=== PATIENT | female | born 1930 | race African-American/Black ===

== ENCOUNTER 2021-01-04 12:42 | Inpatient (IN) | payer MEDICARE ==
[2021-01-04] MEDS ORDERED: Calcium Carbonate 500 MG ChewTAB PO PRN (14:37)
[2021-01-04] MEDS ORDERED: Sodium Chloride 0.65% Nasal 44 ML BOT EA NARE PRN (14:37)
[2021-01-04] MEDS ORDERED: Dextrose 5% in Water 1,000 ML IV PRN (14:37)
[2021-01-04] MEDS ORDERED: Dextrose 50% Abboject 50 ML SYRINGE SLOW IVP PRN (14:37)
[2021-01-04] MEDS ORDERED: hydrALAZINE 20 MG/ML VIAL SLOW IVP PRN (14:37)
[2021-01-04] MEDS ORDERED: Senokot S 8.6-50 MG TAB PO PRN (14:37)
[2021-01-04] MEDS ORDERED: Acetaminophen 325 MG TAB PO PRN (14:37)
[2021-01-04] MEDS ORDERED: Loratadine 10 MG TAB PO PRN (14:37)
[2021-01-04] MEDS ORDERED: Guaifenesin DM 100-10/5 ML UDCUP PO PRN (14:37)
[2021-01-04] MEDS ORDERED: Ondansetron ODT 4 MG TAB SL PRN (14:37)
[2021-01-04] MEDS ORDERED: Loperamide HCl 2 MG CAP PO PRN (14:37)
[2021-01-04] MEDS ORDERED: Labetalol HCl 100 MG/20 ML VIAL SLOW IVP PRN (14:37)
[2021-01-04] MEDS ORDERED: Cepastat Lozenges 1 LOZ PO PRN (14:37)
[2021-01-04] MEDS ORDERED: Morphine 2 MG/ML VIAL SLOW IVP PRN (14:40)
[2021-01-04] MEDS: Lactated Ringer's 1,000 ML IV SCH (15:29)
[2021-01-04] MEDS: Ondansetron PF 4 MG/2 ML Vial IVP PRN ×2 (15:29→21:03)
[2021-01-04] MEDS: metroNIDAZOLE 500 MG in Premix Bag 1 BAG IVPB SCH ×2 (15:34→23:29)
[2021-01-04] MEDS: HumaLOG 300 UNITS/3 ML VIAL SC PRN ×2 (16:54→21:04)
[2021-01-04] MEDS ORDERED: Promethazine HCl 12.5 MG in Sodium Chloride 0.9% 50 ML IVPB SCH (23:30)
[2021-01-05 03:43] LABS: SARS-CoV-2 NAA Rapid Test Not Detected (NotDetected)
[2021-01-05] MEDS: Ondansetron PF 4 MG/2 ML Vial IVP PRN ×2 (03:58→11:54)
[2021-01-05] MEDS: Lactated Ringer's 1,000 ML IV SCH (05:20)
[2021-01-05] MEDS: HumaLOG 300 UNITS/3 ML VIAL SC PRN (05:21)
[2021-01-05 06:40] LABS: ALT (SGPT) 11 U/L (8-55); AST (SGOT) 15 U/L (5-34); Alkaline Phosphatase 85 U/L (40-110); Anion Gap 13 mmol/L (10-20); BUN (Urea Nitrogen) 23 mg/dL (9.8-20.1); Bilirubin, Total 0.3 mg/dL (0.2-1.2); Calc. Creatinine Clearance 29 mL/min (70-130); Calcium 8.4 mg/dL (7.8-10.44); Carbon Dioxide 19 mmol/L (23-31); Chloride 107 mmol/L (98-107); Globulin 2.5 g/dL (2.4-3.5); Glucose 292 mg/dL (83-110); Magnesium 1.5 mg/dL (1.6-2.6); Phosphorus 3.2 mg/dL (2.3-4.7); Potassium 5.2 mmol/L (3.5-5.1); Protein, Total 5.5 g/dL (5.8-8.1); Sodium 134 mmol/L (136-145)
[2021-01-05] MEDS ORDERED: Magnesium Sulfate 3 GM in Sodium Chloride 0.9% 100 ML IVPB SCH (07:00)
[2021-01-05 07:01] LABS: Hemoglobin 14.3 g/dL (12.0-16.0); Mean Corpuscular HGB CONC 32.4 g/dL (32.0-36.0); Mean Corpuscular Hemoglobin 29.5 pg (27.0-31.0); Mean Platelet Volume 8.3 fL (7.4-10.4); Platelet Count 243 thou/uL (130-400); RBC Distribution Width 11.8 % (11.5-14.5); Red Blood Cell (RBC) Count 4.85 mill/uL (4.20-5.40); White Blood Cell (WBC) Count 17.9 thou/uL (4.8-10.8)
[2021-01-05 07:38] LABS: Hemoglobin A1c 6.1 % (4.0-6.0)
[2021-01-05 07:40] LABS: #Lymphocytes 1.3 thou/uL (1.20-3.40); #Monocytes 1.1 thou/uL (0.11-0.59); #Neutrophils 15.5 thou/uL (1.40-6.50); %Eosinophils 0.1 % (0.0-10.0); %Lymphocytes 7.2 % (21.0-51.0); %Monocytes 6.1 % (0.0-10.0); %Neutrophils 86.6 % (42.0-75.0); Band 15 % (5-11); Eosinophils 1 % (0-10); Lymphocytes 6 % (21-51); MDiff Complete? YES; Monocytes 7 % (0-10); Neutrophil 71 % (42-75); Platelet Morphology Comment Appears Adequate; RBC Morphology Normal
[2021-01-05] MEDS ORDERED: Enoxaparin Sodium 40 MG/0.4 ML SYRINGE SC SCH (09:00)
[2021-01-05] MEDS ORDERED: MD-Gastroview 120 ML BOT ONE (09:05)
[2021-01-05] MEDS: Pantoprazole 40 MG VIAL IVP SCH (11:34)
[2021-01-05] MEDS: metroNIDAZOLE 500 MG in Premix Bag 1 BAG IVPB SCH ×2 (11:35→19:59)
[2021-01-05] MEDS: Gabapentin 100 MG CAP PO SCH (11:36)
[2021-01-05] MEDS: Morphine 4 MG/ML VIAL SLOW IVP PRN ×2 (11:55→16:39)
[2021-01-05] MEDS ORDERED: Furosemide 20 MG/2 ML VIAL SLOW IVP SCH (14:30)
[2021-01-05] MEDS ORDERED: Atorvastatin Calcium 10 MG TAB PO SCH (21:00)
[2021-01-05] MEDS ORDERED: Gabapentin 100 MG CAP PO SCH (21:00)
[2021-01-06] MEDS: metroNIDAZOLE 500 MG in Premix Bag 1 BAG IVPB SCH ×2 (03:34→17:10)
[2021-01-06 07:05] LABS: Hemoglobin 12.7 g/dL (12.0-16.0); Mean Corpuscular HGB CONC 32.7 g/dL (32.0-36.0); Mean Corpuscular Hemoglobin 29.9 pg (27.0-31.0); Mean Corpuscular Volume 91.5 fL (78.0-98.0); Mean Platelet Volume 8.7 fL (7.4-10.4); Platelet Count 225 thou/uL (130-400); RBC Distribution Width 12.1 % (11.5-14.5); Red Blood Cell (RBC) Count 4.26 mill/uL (4.20-5.40); White Blood Cell (WBC) Count 13.8 thou/uL (4.8-10.8)
[2021-01-06 07:24] LABS: ALT (SGPT) 11 U/L (8-55); AST (SGOT) 18 U/L (5-34); Albumin 2.7 g/dL (3.4-4.8); Alkaline Phosphatase 73 U/L (40-110); Anion Gap 14 mmol/L (10-20); BUN (Urea Nitrogen) 45 mg/dL (9.8-20.1); Bilirubin, Total 0.3 mg/dL (0.2-1.2); Calc. Creatinine Clearance 13 mL/min (70-130); Calcium 8.6 mg/dL (7.8-10.44); Carbon Dioxide 24 mmol/L (23-31); Chloride 106 mmol/L (98-107); Globulin 2.4 g/dL (2.4-3.5); Glucose 232 mg/dL (83-110); Potassium 5.2 mmol/L (3.5-5.1); Protein, Total 5.1 g/dL (5.8-8.1); Sodium 139 mmol/L (136-145)
[2021-01-06] MEDS ORDERED: Dextrose 50% Abboject 50 ML SYRINGE SLOW IVP SCH (08:02)
[2021-01-06] MEDS ORDERED: Insulin Regular 300 UNITS/3 ML VIAL IVP SCH (08:15)
[2021-01-06] MEDS ORDERED: Ciprofloxacin Lactate/D5W 200 MG in Premix Bag 1 BAG IVPB SCH ×2 (08:15→16:00)
[2021-01-06 08:28] LABS: #Lymphocytes 1.4 thou/uL (1.20-3.40); #Monocytes 1.4 thou/uL (0.11-0.59); %Basophils 0.1 % (0.0-1.0); %Lymphocytes 10.4 % (21.0-51.0); %Monocytes 10.3 % (0.0-10.0); %Neutrophils 79.2 % (42.0-75.0); Band 23 % (5-11); Lymphocytes 8 % (21-51); MDiff Complete? YES; Monocytes 10 % (0-10); Neutrophil 59 % (42-75); RBC Morphology Normal
[2021-01-06] MEDS ORDERED: Enoxaparin Sodium 30 MG/0.3 ML SYRINGE SC SCH (09:00)
[2021-01-06] MEDS: Pantoprazole 40 MG VIAL IVP SCH (10:03)
[2021-01-06] MEDS: Gabapentin 100 MG CAP PO SCH (10:06)
[2021-01-06] MEDS: Sodium Chloride 0.45% 1,000 ML IV SCH ×2 (10:28→16:52)
[2021-01-06] MEDS ORDERED: Fentanyl 100 MCG/2 ML VIAL ONE ×2 (12:18→14:59)
[2021-01-06] MEDS ORDERED: cefOXitin Sodium/Dextrose 2 GM/50 ML BAG ONE (12:26)
[2021-01-06] MEDS ORDERED: ceFOXitin 1 GM VIAL ONE (12:26)
[2021-01-06] MEDS ORDERED: Sodium Chloride 0.9% 100 ML ONE (12:27)
[2021-01-06 12:36] LABS: Potassium 4.5 mmol/L (3.5-5.1)
[2021-01-06] MEDS ORDERED: Succinylcholine 200 MG/10 ml SYRINGE FS ONE (12:55)
[2021-01-06] MEDS ORDERED: PROPOFOL 200 MG/20 ML VIAL ONE (12:55)
[2021-01-06] MEDS ORDERED: PHENYLEPHRINE-NS 100 MCG/ML 10 ML SYRINGE ONE (12:55)
[2021-01-06] MEDS ORDERED: Norepinephrine 4 MG/4 ML VIAL ONE (12:55)
[2021-01-06] MEDS ORDERED: Lidocaine 1% PF 5 ML VIAL ONE (12:55)
[2021-01-06] MEDS ORDERED: Calcium Chloride 1 GM/10 ML Abboject SYRINGE ONE (12:55)
[2021-01-06] MEDS ORDERED: Sodium Chloride 0.9% 10 ML ONE (13:26)
[2021-01-06] MEDS ORDERED: Albumin 25% 100 ML ONE (13:35)
[2021-01-06] MEDS ORDERED: SUGAMMADEX SODIUM 200 MG/2 ML VIAL ONE (13:48)
[2021-01-06] MEDS ORDERED: Fentanyl 100 MCG/2 ML VIAL SLOW IVP PRN (14:20)
[2021-01-06] MEDS ORDERED: Dextrose 50% Abboject 50 ML SYRINGE SLOW IVP PRN (14:20)
[2021-01-06] MEDS ORDERED: Dextrose 5% in Water 1,000 ML IV PRN (14:20)
[2021-01-06] MEDS ORDERED: Ondansetron HCl/PF 4 MG/2 ML Vial IVP PRN (14:28)
[2021-01-06] MEDS ORDERED: Norepinephrine 8 MG/0.9% NS 250 ML IVPB SCH (17:00)
[2021-01-07] MEDS: Sodium Chloride 0.45% 1,000 ML IV SCH ×2 (00:06→07:39)
[2021-01-07 05:24] VITALS: BMI 25.2
[2021-01-07 05:43] LABS: #Lymphocytes 1.1 thou/uL (1.20-3.40); #Monocytes 0.5 thou/uL (0.11-0.59); #Neutrophils 6.1 thou/uL (1.40-6.50); %Lymphocytes 13.9 % (21.0-51.0); %Neutrophils 79.1 % (42.0-75.0); Hemoglobin 10.2 g/dL (12.0-16.0); Mean Corpuscular HGB CONC 34.1 g/dL (32.0-36.0); Mean Corpuscular Hemoglobin 31.2 pg (27.0-31.0); Mean Corpuscular Volume 91.5 fL (78.0-98.0); Mean Platelet Volume 8.3 fL (7.4-10.4); Platelet Count 165 thou/uL (130-400); Red Blood Cell (RBC) Count 3.27 mill/uL (4.20-5.40); White Blood Cell (WBC) Count 7.7 thou/uL (4.8-10.8)
[2021-01-07 05:58] LABS: Anion Gap 14 mmol/L (10-20); BUN (Urea Nitrogen) 48 mg/dL (9.8-20.1); Calc. Creatinine Clearance 13 mL/min (70-130); Calcium 8.8 mg/dL (7.8-10.44); Carbon Dioxide 21 mmol/L (23-31); Chloride 107 mmol/L (98-107); Glucose 99 mg/dL (83-110); Potassium 4.4 mmol/L (3.5-5.1); Sodium 138 mmol/L (136-145)
[2021-01-07] MEDS: Sodium Chloride 0.9% 1,000 ML IV SCH ×2 (10:00→23:56)
[2021-01-07] MEDS: Fentanyl 100 MCG/2 ML VIAL SLOW IVP PRN (21:17)
[2021-01-08] MEDS: Fentanyl 100 MCG/2 ML VIAL SLOW IVP PRN ×2 (02:27→05:12)
[2021-01-08 06:05] LABS: #Eosinphils 0.1 thou/uL (0.0-0.7); #Lymphocytes 1.1 thou/uL (1.20-3.40); #Monocytes 0.7 thou/uL (0.11-0.59); #Neutrophils 6.8 thou/uL (1.40-6.50); %Basophils 0.3 % (0.0-1.0); %Eosinophils 0.7 % (0.0-10.0); %Lymphocytes 12.9 % (21.0-51.0); %Monocytes 7.8 % (0.0-10.0); %Neutrophils 78.3 % (42.0-75.0); Hemoglobin 10.4 g/dL (12.0-16.0); Mean Corpuscular Hemoglobin 30.6 pg (27.0-31.0); Mean Corpuscular Volume 92.7 fL (78.0-98.0); Mean Platelet Volume 7.6 fL (7.4-10.4); Platelet Count 181 thou/uL (130-400); RBC Distribution Width 11.9 % (11.5-14.5); Red Blood Cell (RBC) Count 3.39 mill/uL (4.20-5.40); White Blood Cell (WBC) Count 8.7 thou/uL (4.8-10.8)
[2021-01-08 06:27] LABS: Anion Gap 13 mmol/L (10-20); BUN (Urea Nitrogen) 40 mg/dL (9.8-20.1); Calc. Creatinine Clearance 21 mL/min (70-130); Calcium 8.6 mg/dL (7.8-10.44); Carbon Dioxide 22 mmol/L (23-31); Chloride 110 mmol/L (98-107); Glucose 106 mg/dL (83-110); Potassium 3.6 mmol/L (3.5-5.1); Sodium 141 mmol/L (136-145)
[2021-01-08] MEDS ORDERED: Guaifenesin DM 100-10/5 ML UDCUP PO PRN (12:21)
[2021-01-08] MEDS ORDERED: cefTRIAXone\\ROCEPHIN 1 GM in Sodium Chloride 0.9% 100 ML IVPB SCH (13:30)
[2021-01-08] MEDS: Dextrose 5 % And 0.9 % NaCl 1,000 ML IV SCH (14:13)
[2021-01-08 14:47] LABS: Legionella Urinary Ag Negative (Negative); Strep pneumo Urine Ag NEGATIVE (NEGATIVE)
[2021-01-09 05:12] LABS: #Eosinphils 0.1 thou/uL (0.0-0.7); #Monocytes 0.8 thou/uL (0.11-0.59); #Neutrophils 8.1 thou/uL (1.40-6.50); %Basophils 0.1 % (0.0-1.0); %Eosinophils 1.3 % (0.0-10.0); %Lymphocytes 9.9 % (21.0-51.0); %Monocytes 7.7 % (0.0-10.0); %Neutrophils 81.1 % (42.0-75.0); Hemoglobin 10.5 g/dL (12.0-16.0); Mean Corpuscular HGB CONC 31.5 g/dL (32.0-36.0); Mean Corpuscular Hemoglobin 28.8 pg (27.0-31.0); Mean Corpuscular Volume 91.5 fL (78.0-98.0); Mean Platelet Volume 7.5 fL (7.4-10.4); Platelet Count 206 thou/uL (130-400); RBC Distribution Width 11.9 % (11.5-14.5); Red Blood Cell (RBC) Count 3.64 mill/uL (4.20-5.40); White Blood Cell (WBC) Count 9.9 thou/uL (4.8-10.8)
[2021-01-09 05:33] LABS: Anion Gap 14 mmol/L (10-20); BUN (Urea Nitrogen) 32 mg/dL (9.8-20.1); Calc. Creatinine Clearance 31 mL/min (70-130); Calcium 8.5 mg/dL (7.8-10.44); Carbon Dioxide 23 mmol/L (23-31); Chloride 111 mmol/L (98-107); Glucose 187 mg/dL (83-110); Magnesium 2.3 mg/dL (1.6-2.6); Potassium 3.5 mmol/L (3.5-5.1); Sodium 144 mmol/L (136-145)
[2021-01-09] MEDS: HumaLOG 300 UNITS/3 ML VIAL SC PRN ×2 (06:35→18:33)
[2021-01-09] MEDS: cefTRIAXone\\ROCEPHIN 1 GM in Sodium Chloride 0.9% 100 ML IVPB SCH (08:30)
[2021-01-09] MEDS: Dextrose 5 % And 0.9 % NaCl 1,000 ML IV SCH (11:52)
[2021-01-09] MEDS ORDERED: Ondansetron ODT 8 MG TAB SL PRN (20:06)
[2021-01-09] MEDS ORDERED: Ondansetron PF 4 MG/2 ML Vial IVP SCH (20:15)
[2021-01-10] MEDS: Ondansetron PF 4 MG/2 ML Vial IVP PRN ×2 (03:18→17:14)
[2021-01-10 03:20] LABS: #Basophils 0.1 thou/uL (0.0-0.2); #Eosinphils 0.3 thou/uL (0.0-0.7); #Monocytes 0.9 thou/uL (0.11-0.59); #Neutrophils 6.1 thou/uL (1.40-6.50); %Eosinophils 3.2 % (0.0-10.0); %Lymphocytes 11.7 % (21.0-51.0); %Monocytes 10.5 % (0.0-10.0); %Neutrophils 73.7 % (42.0-75.0); Hemoglobin 10.9 g/dL (12.0-16.0); Mean Corpuscular HGB CONC 33.3 g/dL (32.0-36.0); Mean Corpuscular Hemoglobin 30.6 pg (27.0-31.0); Mean Corpuscular Volume 91.8 fL (78.0-98.0); Mean Platelet Volume 6.8 fL (7.4-10.4); Platelet Count 194 thou/uL (130-400); RBC Distribution Width 11.8 % (11.5-14.5); Red Blood Cell (RBC) Count 3.55 mill/uL (4.20-5.40); White Blood Cell (WBC) Count 8.2 thou/uL (4.8-10.8)
[2021-01-10 03:42] LABS: Anion Gap 10 mmol/L (10-20); BUN (Urea Nitrogen) 26 mg/dL (9.8-20.1); Calc. Creatinine Clearance 39 mL/min (70-130); Calcium 8.7 mg/dL (7.8-10.44); Carbon Dioxide 27 mmol/L (23-31); Chloride 113 mmol/L (98-107); Glucose 177 mg/dL (83-110); Potassium 3.2 mmol/L (3.5-5.1); Sodium 147 mmol/L (136-145)
[2021-01-10] MEDS: Dextrose 5 % And 0.9 % NaCl 1,000 ML IV SCH (06:15)
[2021-01-10] MEDS: cefTRIAXone\\ROCEPHIN 1 GM in Sodium Chloride 0.9% 100 ML IVPB SCH (07:59)
[2021-01-10] MEDS: HumaLOG 300 UNITS/3 ML VIAL SC PRN (10:20)
[2021-01-10] MEDS ORDERED: Potassium Chloride 20 MEQ in Premix Bag 1 BAG IVPB SCH ×2 (14:00→17:30)
[2021-01-10] MEDS: Fentanyl 100 MCG/2 ML VIAL SLOW IVP PRN (17:39)
[2021-01-11] MEDS: Fentanyl 100 MCG/2 ML VIAL SLOW IVP PRN ×6 (04:16→20:03)
[2021-01-11] MEDS: HumaLOG 300 UNITS/3 ML VIAL SC PRN ×3 (05:41→15:56)
[2021-01-11 06:32] LABS: Anion Gap 9 mmol/L (10-20); BUN (Urea Nitrogen) 17 mg/dL (9.8-20.1); Calc. Creatinine Clearance 40 mL/min (70-130); Calcium 8.4 mg/dL (7.8-10.44); Carbon Dioxide 29 mmol/L (23-31); Chloride 114 mmol/L (98-107); Glucose 198 mg/dL (83-110); Potassium 4.1 mmol/L (3.5-5.1); Sodium 148 mmol/L (136-145)
[2021-01-11] MEDS: cefTRIAXone\\ROCEPHIN 1 GM in Sodium Chloride 0.9% 100 ML IVPB SCH (08:03)
[2021-01-11] MEDS ORDERED: Lidocaine 5% Patch TD SCH (09:00)
[2021-01-11] MEDS ORDERED: Acetaminophen 500 MG TAB PO PRN (12:22)
[2021-01-11] MEDS ORDERED: Ibuprofen 200 MG TAB PO PRN (12:22)
[2021-01-11] MEDS: Transdermal Patch Removal TOP SCH (21:48)
[2021-01-12] MEDS: HumaLOG 300 UNITS/3 ML VIAL SC PRN ×4 (04:39→23:29)
[2021-01-12] MEDS: cefTRIAXone\\ROCEPHIN 1 GM in Sodium Chloride 0.9% 100 ML IVPB SCH (09:54)
[2021-01-12] MEDS: Lidocaine 5% Patch TD SCH (09:58)
[2021-01-12] MEDS: Fentanyl 100 MCG/2 ML VIAL SLOW IVP PRN (10:52)
[2021-01-12 14:51] LABS: #Eosinphils 0.1 thou/uL (0.0-0.7); #Lymphocytes 1.4 thou/uL (1.20-3.40); #Monocytes 0.9 thou/uL (0.11-0.59); #Neutrophils 9.7 thou/uL (1.40-6.50); %Basophils 0.1 % (0.0-1.0); %Lymphocytes 11.7 % (21.0-51.0); %Monocytes 7.3 % (0.0-10.0); %Neutrophils 79.9 % (42.0-75.0); Mean Corpuscular HGB CONC 33.3 g/dL (32.0-36.0); Mean Corpuscular Hemoglobin 30.6 pg (27.0-31.0); Mean Corpuscular Volume 92.1 fL (78.0-98.0); Mean Platelet Volume 6.8 fL (7.4-10.4); Platelet Count 189 thou/uL (130-400); RBC Distribution Width 11.7 % (11.5-14.5); White Blood Cell (WBC) Count 12.1 thou/uL (4.8-10.8)
[2021-01-12 15:08] LABS: Anion Gap 12 mmol/L (10-20); BUN (Urea Nitrogen) 10 mg/dL (9.8-20.1); Calc. Creatinine Clearance 40 mL/min (70-130); Calcium 8.9 mg/dL (7.8-10.44); Carbon Dioxide 28 mmol/L (23-31); Chloride 108 mmol/L (98-107); Glucose 205 mg/dL (83-110); Potassium 4.6 mmol/L (3.5-5.1); Sodium 143 mmol/L (136-145)
[2021-01-12] MEDS: Transdermal Patch Removal TOP SCH ×2 (21:27)
[2021-01-13 05:18] LABS: #Eosinphils 0.2 thou/uL (0.0-0.7); #Lymphocytes 1.6 thou/uL (1.20-3.40); #Monocytes 0.9 thou/uL (0.11-0.59); %Basophils 0.1 % (0.0-1.0); %Eosinophils 1.4 % (0.0-10.0); %Lymphocytes 12.4 % (21.0-51.0); %Monocytes 7.3 % (0.0-10.0); %Neutrophils 78.8 % (42.0-75.0); Hemoglobin 9.9 g/dL (12.0-16.0); Mean Corpuscular Hemoglobin 30.6 pg (27.0-31.0); Mean Corpuscular Volume 92.6 fL (78.0-98.0); Platelet Count 185 thou/uL (130-400); RBC Distribution Width 11.6 % (11.5-14.5); Red Blood Cell (RBC) Count 3.25 mill/uL (4.20-5.40); White Blood Cell (WBC) Count 12.7 thou/uL (4.8-10.8)
[2021-01-13 05:37] LABS: Anion Gap 10 mmol/L (10-20); BUN (Urea Nitrogen) 10 mg/dL (9.8-20.1); Calc. Creatinine Clearance 40 mL/min (70-130); Calcium 8.8 mg/dL (7.8-10.44); Carbon Dioxide 31 mmol/L (23-31); Chloride 107 mmol/L (98-107); Glucose 213 mg/dL (83-110); Potassium 4.5 mmol/L (3.5-5.1); Sodium 143 mmol/L (136-145)
[2021-01-13] MEDS: HumaLOG 300 UNITS/3 ML VIAL SC PRN ×3 (06:13→17:26)
[2021-01-13] MEDS: Lidocaine 5% Patch TD SCH (10:17)
[2021-01-13] MEDS: cefTRIAXone\\ROCEPHIN 1 GM in Sodium Chloride 0.9% 100 ML IVPB SCH (10:17)
[2021-01-13 10:30] LABS: INR-International Normal Ratio 1.1; PTT 30.8 sec (22.9-36.1); Prothrombin Time 14.5 sec (12.0-14.7)
[2021-01-13 10:44] LABS: ALT (SGPT) 16 U/L (8-55); AST (SGOT) 20 U/L (5-34); Albumin 2.9 g/dL (3.4-4.8); Alkaline Phosphatase 101 U/L (40-110); Anion Gap 15 mmol/L (10-20); BUN (Urea Nitrogen) 10 mg/dL (9.8-20.1); Bilirubin, Total 0.7 mg/dL (0.2-1.2); Calc. Creatinine Clearance 37 mL/min (70-130); Calcium 9.3 mg/dL (7.8-10.44); Carbon Dioxide 25 mmol/L (23-31); Chloride 106 mmol/L (98-107); Cholesterol 133 mg/dl (< 200 Desired); Globulin 3.4 g/dL (2.4-3.5); Glucose 227 mg/dL (83-110); HDL Cholesterol 45 mg/dL (>60 Neg Risk); LDL Cholesterol, Calculated 64 mg/dL; Magnesium 1.6 mg/dL (1.6-2.6); Phosphorus 2.3 mg/dL (2.3-4.7); Protein, Total 6.3 g/dL (5.8-8.1); Sodium 141 mmol/L (136-145); Triglycerides 121 mg/dL (Less than 150)
[2021-01-13] MEDS: Fentanyl 100 MCG/2 ML VIAL SLOW IVP PRN ×2 (11:39→18:03)
[2021-01-13] MEDS: Multivitamins, Adult 10 ML, TRACE ELEMENT CONCENTRATE 1 ML in D15W-AA 5% with Lytes 2,0... IV SCH (14:36)
[2021-01-13] MEDS: Transdermal Patch Removal TOP SCH ×2 (23:53)
[2021-01-14] MEDS: HumaLOG 300 UNITS/3 ML VIAL SC PRN ×5 (00:01→23:58)
[2021-01-14 05:35] LABS: #Eosinphils 0.2 thou/uL (0.0-0.7); #Lymphocytes 1.1 thou/uL (1.20-3.40); #Monocytes 0.5 thou/uL (0.11-0.59); #Neutrophils 6.7 thou/uL (1.40-6.50); %Basophils 0.2 % (0.0-1.0); %Lymphocytes 12.6 % (21.0-51.0); %Monocytes 6.3 % (0.0-10.0); %Neutrophils 78.8 % (42.0-75.0); Hemoglobin 12.4 g/dL (12.0-16.0); Mean Corpuscular HGB CONC 30.2 g/dL (32.0-36.0); Mean Corpuscular Volume 92.9 fL (78.0-98.0); Mean Platelet Volume 7.2 fL (7.4-10.4); Platelet Count 158 thou/uL (130-400); RBC Distribution Width 11.7 % (11.5-14.5); Red Blood Cell (RBC) Count 4.44 mill/uL (4.20-5.40); White Blood Cell (WBC) Count 8.5 thou/uL (4.8-10.8)
[2021-01-14 06:05] LABS: Anion Gap 12 mmol/L (10-20); BUN (Urea Nitrogen) 17 mg/dL (9.8-20.1); Calc. Creatinine Clearance 41 mL/min (70-130); Calcium 8.5 mg/dL (7.8-10.44); Carbon Dioxide 27 mmol/L (23-31); Chloride 103 mmol/L (98-107); Glucose 325 mg/dL (83-110); Potassium 4.4 mmol/L (3.5-5.1); Sodium 138 mmol/L (136-145)
[2021-01-14] MEDS ORDERED: Triamcinolone 40 MG/ML VIAL I-ARTICULR SCH (07:30)
[2021-01-14] MEDS ORDERED: Lidocaine 1% (PF) 30 ML VIAL ONE (08:43)
[2021-01-14] MEDS: Fentanyl 100 MCG/2 ML VIAL SLOW IVP PRN (08:58)
[2021-01-14] MEDS: cefTRIAXone\\ROCEPHIN 1 GM in Sodium Chloride 0.9% 100 ML IVPB SCH (09:04)
[2021-01-14] MEDS: Lidocaine 5% Patch TD SCH (11:13)
[2021-01-14] MEDS: Multivitamins, Adult 10 ML, TRACE ELEMENT CONCENTRATE 1 ML in D15W-AA 5% with Lytes 2,0... IV SCH (15:18)
[2021-01-14] MEDS ORDERED: Lantus 1000 UNITS/10 ML VIAL SC SCH (16:30)
[2021-01-14] MEDS: Transdermal Patch Removal TOP SCH ×2 (19:53)
[2021-01-15 06:18] LABS: #Lymphocytes 0.9 thou/uL (1.20-3.40); #Monocytes 0.6 thou/uL (0.11-0.59); #Neutrophils 9.8 thou/uL (1.40-6.50); %Basophils 0.2 % (0.0-1.0); %Eosinophils 0.4 % (0.0-10.0); %Lymphocytes 7.7 % (21.0-51.0); %Monocytes 5.1 % (0.0-10.0); %Neutrophils 86.7 % (42.0-75.0); Hemoglobin 9.3 g/dL (12.0-16.0); Mean Corpuscular HGB CONC 31.9 g/dL (32.0-36.0); Mean Corpuscular Hemoglobin 29.3 pg (27.0-31.0); Mean Corpuscular Volume 92.1 fL (78.0-98.0); Mean Platelet Volume 7.4 fL (7.4-10.4); Platelet Count 234 thou/uL (130-400); RBC Distribution Width 11.2 % (11.5-14.5); Red Blood Cell (RBC) Count 3.18 mill/uL (4.20-5.40); White Blood Cell (WBC) Count 11.3 thou/uL (4.8-10.8)
[2021-01-15] MEDS: HumaLOG 300 UNITS/3 ML VIAL SC PRN ×3 (06:25→18:22)
[2021-01-15 06:32] LABS: Anion Gap 12 mmol/L (10-20); BUN (Urea Nitrogen) 33 mg/dL (9.8-20.1); Calc. Creatinine Clearance 39 mL/min (70-130); Calcium 8.5 mg/dL (7.8-10.44); Carbon Dioxide 27 mmol/L (23-31); Chloride 102 mmol/L (98-107); Glucose 378 mg/dL (83-110); Potassium 4.6 mmol/L (3.5-5.1); Sodium 136 mmol/L (136-145)
[2021-01-15] MEDS: Lidocaine 5% Patch TD SCH (08:23)
[2021-01-15] MEDS: cefTRIAXone\\ROCEPHIN 1 GM in Sodium Chloride 0.9% 100 ML IVPB SCH (08:24)
[2021-01-15] MEDS ORDERED: Lantus 1000 UNITS/10 ML VIAL SC SCH (09:00)
[2021-01-15] MEDS: Multivitamins, Adult 10 ML, TRACE ELEMENT CONCENTRATE 1 ML in D15W-AA 5% with Lytes 2,0... IV SCH (14:12)
[2021-01-15] MEDS: Transdermal Patch Removal TOP SCH ×2 (20:33)
[2021-01-16] MEDS: HumaLOG 300 UNITS/3 ML VIAL SC PRN ×4 (00:14→17:50)
[2021-01-16] MEDS: Lidocaine 5% Patch TD SCH (08:10)
[2021-01-16] MEDS: cefTRIAXone\\ROCEPHIN 1 GM in Sodium Chloride 0.9% 100 ML IVPB SCH (08:10)
[2021-01-16] MEDS ORDERED: Lantus 1000 UNITS/10 ML VIAL SC SCH ×2 (09:00→13:00)
[2021-01-16] MEDS: Multivitamins, Adult 10 ML, TRACE ELEMENT CONCENTRATE 1 ML in D15W-AA 5% with Lytes 2,0... IV SCH (14:26)
[2021-01-16] MEDS ORDERED: Fentanyl 100 MCG/2 ML VIAL SLOW IVP PRN ×2 (18:01→18:02)
[2021-01-17] MEDS: HumaLOG 300 UNITS/3 ML VIAL SC PRN ×3 (00:58→17:47)
[2021-01-17] MEDS: Transdermal Patch Removal TOP SCH ×4 (03:07→20:16)
[2021-01-17 06:22] LABS: #Basophils 0.1 thou/uL (0.0-0.2); #Eosinphils 0.1 thou/uL (0.0-0.7); #Lymphocytes 1.4 thou/uL (1.20-3.40); #Monocytes 0.9 thou/uL (0.11-0.59); #Neutrophils 7.8 thou/uL (1.40-6.50); %Basophils 0.5 % (0.0-1.0); %Eosinophils 1.4 % (0.0-10.0); %Lymphocytes 13.8 % (21.0-51.0); %Monocytes 9.1 % (0.0-10.0); %Neutrophils 75.3 % (42.0-75.0); Hemoglobin 9.5 g/dL (12.0-16.0); Mean Corpuscular HGB CONC 32.9 g/dL (32.0-36.0); Mean Corpuscular Hemoglobin 29.7 pg (27.0-31.0); Mean Corpuscular Volume 90.4 fL (78.0-98.0); Mean Platelet Volume 7.4 fL (7.4-10.4); Platelet Count 315 thou/uL (130-400); RBC Distribution Width 11.3 % (11.5-14.5); Red Blood Cell (RBC) Count 3.19 mill/uL (4.20-5.40); White Blood Cell (WBC) Count 10.4 thou/uL (4.8-10.8)
[2021-01-17 06:40] LABS: Anion Gap 12 mmol/L (10-20); BUN (Urea Nitrogen) 37 mg/dL (9.8-20.1); Calc. Creatinine Clearance 45 mL/min (70-130); Calcium 8.4 mg/dL (7.8-10.44); Carbon Dioxide 26 mmol/L (23-31); Chloride 101 mmol/L (98-107); Glucose 265 mg/dL (83-110); Sodium 135 mmol/L (136-145)
[2021-01-17] MEDS: Lidocaine 5% Patch TD SCH (08:04)
[2021-01-17] MEDS: cefTRIAXone\\ROCEPHIN 1 GM in Sodium Chloride 0.9% 100 ML IVPB SCH (08:04)
[2021-01-17] MEDS: Lantus 1000 UNITS/10 ML VIAL SC SCH (08:04)
[2021-01-17] MEDS: Multivitamins, Adult 10 ML, TRACE ELEMENT CONCENTRATE 1 ML in D15W-AA 5% with Lytes 2,0... IV SCH (14:16)
[2021-01-18] MEDS: HumaLOG 300 UNITS/3 ML VIAL SC PRN ×5 (00:06→23:39)
[2021-01-18 04:59] LABS: #Basophils 0.1 thou/uL (0.0-0.2); #Eosinphils 0.2 thou/uL (0.0-0.7); #Lymphocytes 1.4 thou/uL (1.20-3.40); #Monocytes 0.9 thou/uL (0.11-0.59); #Neutrophils 7.5 thou/uL (1.40-6.50); %Basophils 0.5 % (0.0-1.0); %Lymphocytes 13.8 % (21.0-51.0); %Monocytes 9.1 % (0.0-10.0); %Neutrophils 74.6 % (42.0-75.0); Hemoglobin 9.7 g/dL (12.0-16.0); Mean Corpuscular HGB CONC 32.6 g/dL (32.0-36.0); Mean Corpuscular Hemoglobin 29.9 pg (27.0-31.0); Mean Corpuscular Volume 91.6 fL (78.0-98.0); Mean Platelet Volume 7.7 fL (7.4-10.4); Platelet Count 337 thou/uL (130-400); RBC Distribution Width 11.4 % (11.5-14.5); Red Blood Cell (RBC) Count 3.24 mill/uL (4.20-5.40); White Blood Cell (WBC) Count 10.1 thou/uL (4.8-10.8)
[2021-01-18 05:34] LABS: Anion Gap 10 mmol/L (10-20); BUN (Urea Nitrogen) 38 mg/dL (9.8-20.1); Calc. Creatinine Clearance 43 mL/min (70-130); Calcium 8.5 mg/dL (7.8-10.44); Carbon Dioxide 26 mmol/L (23-31); Chloride 102 mmol/L (98-107); Glucose 309 mg/dL (83-110); Magnesium 1.7 mg/dL (1.6-2.6); Phosphorus 3.6 mg/dL (2.3-4.7); Potassium 4.5 mmol/L (3.5-5.1); Sodium 133 mmol/L (136-145)
[2021-01-18] MEDS: cefTRIAXone\\ROCEPHIN 1 GM in Sodium Chloride 0.9% 100 ML IVPB SCH (08:42)
[2021-01-18] MEDS: Lidocaine 5% Patch TD SCH (08:42)
[2021-01-18] MEDS: Lantus 1000 UNITS/10 ML VIAL SC SCH ×2 (08:42→20:25)
[2021-01-18] MEDS: Multivitamins, Adult 10 ML, TRACE ELEMENT CONCENTRATE 1 ML in D15W-AA 5% with Lytes 2,0... IV SCH (14:28)
[2021-01-18] MEDS: Transdermal Patch Removal TOP SCH ×2 (20:26)
[2021-01-19 05:13] LABS: #Basophils 0.1 thou/uL (0.0-0.2); #Eosinphils 0.2 thou/uL (0.0-0.7); #Lymphocytes 1.9 thou/uL (1.20-3.40); #Neutrophils 9.3 thou/uL (1.40-6.50); %Basophils 0.5 % (0.0-1.0); %Eosinophils 1.6 % (0.0-10.0); %Lymphocytes 15.6 % (21.0-51.0); %Monocytes 8.2 % (0.0-10.0); %Neutrophils 74.1 % (42.0-75.0); Hemoglobin 10.4 g/dL (12.0-16.0); Mean Corpuscular HGB CONC 33.5 g/dL (32.0-36.0); Mean Corpuscular Hemoglobin 30.6 pg (27.0-31.0); Mean Corpuscular Volume 91.5 fL (78.0-98.0); Mean Platelet Volume 7.6 fL (7.4-10.4); Platelet Count 386 thou/uL (130-400); RBC Distribution Width 11.6 % (11.5-14.5); Red Blood Cell (RBC) Count 3.41 mill/uL (4.20-5.40); White Blood Cell (WBC) Count 12.5 thou/uL (4.8-10.8)
[2021-01-19] MEDS: HumaLOG 300 UNITS/3 ML VIAL SC PRN (05:13)
[2021-01-19 05:36] LABS: Anion Gap 14 mmol/L (10-20); BUN (Urea Nitrogen) 50 mg/dL (9.8-20.1); Calc. Creatinine Clearance 37 mL/min (70-130); Calcium 8.7 mg/dL (7.8-10.44); Carbon Dioxide 23 mmol/L (23-31); Chloride 101 mmol/L (98-107); Glucose 281 mg/dL (83-110); Potassium 4.7 mmol/L (3.5-5.1); Sodium 133 mmol/L (136-145)
[2021-01-19 08:13] VITALS: TEMP 98
[2021-01-19] MEDS: Lidocaine 5% Patch TD SCH (08:55)
[2021-01-19] MEDS: Lantus 1000 UNITS/10 ML VIAL SC SCH (08:56)
[2021-01-19] MEDS: cefTRIAXone\\ROCEPHIN 1 GM in Sodium Chloride 0.9% 100 ML IVPB SCH (08:56)
[2021-01-19 11:21] VITALS: BP 119/64
== END 2021-01-19 12:40 | DRG 335 ==
LOC: T4-B 12:42 → CCU 01-06 13:48 → SURG A 01-07 18:08
PROVIDERS: ADMIT Internal Medicine; ATTEND Internal Medicine
PROC: 0DN80ZZ Release Small Intestine, Open Approach (ICD-10-PCS; principal; 2021-01-06)
PROC: 3E0M05Z Introduction of Adhesion Barrier into Peritoneal Cavity, Open Approach (ICD-10-PCS; 2021-01-06)
PROC: 02H633Z Insertion of Infusion Device into Right Atrium, Percutaneous Approach (ICD-10-PCS; 2021-01-06)
PROC: 0S9C3ZZ Drainage of Right Knee Joint, Percutaneous Approach (ICD-10-PCS; 2021-01-14)
PROC: 3E0U33Z Introduction of Anti-inflammatory into Joints, Percutaneous Approach (ICD-10-PCS; 2021-01-14)
DX: K56.50 Intestinal adhesions [bands], unspecified as to partial versus complete obstruction (principal); J96.01 Acute respiratory failure with hypoxia; J18.9 Pneumonia, unspecified organism; A41.9 Sepsis, unspecified organism; R65.21 Severe sepsis with septic shock; K55.9 Vascular disorder of intestine, unspecified; N17.9 Acute kidney failure, unspecified; E87.0 Hyperosmolality and hypernatremia; K56.2 Volvulus; E11.22 Type 2 diabetes mellitus with diabetic chronic kidney disease; K52.9 Noninfective gastroenteritis and colitis, unspecified; I12.9 Hypertensive chronic kidney disease with stage 1 through stage 4 chronic kidney disease, or unspecified chronic kidney disease; E86.0 Dehydration; M17.11 Unilateral primary osteoarthritis, right knee; N18.30 Chronic kidney disease, stage 3 unspecified; M25.461 Effusion, right knee; Z20.822 Contact with and (suspected) exposure to COVID-19; E83.42 Hypomagnesemia; E87.6 Hypokalemia; K56.7 Ileus, unspecified; Z79.84 Long term (current) use of oral hypoglycemic drugs; Z90.710 Acquired absence of both cervix and uterus; Z90.49 Acquired absence of other specified parts of digestive tract; Z88.5 Allergy status to narcotic agent
CPT/HCPCS: 36415; 36416; 71045; 74018; 74019; 74022; 74250; 80048; 80053; 80061; 83036; 83735; 84100; 84134; 84145; 85025; 85610; 85730; 86140; 87040; 87070; 87205; 87449; 87899; 93005; 93010; C1751; C9113; J0694; J0696; J0744; J1650; J1815; J1940; J2001; J2270; J2405; J2550; J2704; J3010; J3301; J3475; J3480; J3490; P9047; Q9963; U0002; U0003; U0005